=== PATIENT | male | born 1990 | race Caucasian/White ===

== ENCOUNTER 2024-12-25 00:51 | Emergency (ER) | payer SELFPAY ==
[~2024-12-25] VITALS: Ht 160 cm; Wt 79.0 kg
[2024-12-25 01:01] VITALS: BP 137/77; PULSE 81; RESP 16; TEMP 36.8; O2SAT 99
[2024-12-25] MEDS ORDERED: KETOROLAC 15MG/ML VIAL IM ONE (02:15)
== END 2024-12-25 03:30 | disposition home or self-care (01) ==
LOC: ER 00:51
DX: S42.302A Unspecified fracture of shaft of humerus, left arm, initial encounter for closed fracture (principal); S06.9XAA Unspecified intracranial injury with loss of consciousness status unknown, initial encounter; Z88.0 Allergy status to penicillin; W01.0XXA Fall on same level from slipping, tripping and stumbling without subsequent striking against object, initial encounter; Y93.89 Activity, other specified; Y92.89 Other specified places as the place of occurrence of the external cause; Y99.8 Other external cause status
CPT/HCPCS: 73060; 74176; 99284